=== PATIENT | female | born 1930 | race Two or more races ===

== ENCOUNTER 2016-05-29 17:09 | Emergency (ER) | payer MEDICARE ==
[~2016-05-29] VITALS: Ht 160 cm; Wt 59.0 kg
[2016-05-29] MEDS ORDERED: TYLENOL EXTRA500 MG ORAL (18:15)
[2016-05-29 18:43] VITALS: BP 132/62
--- NOTE | 2016-05-29 22:13 | Emergency Room Report ---
History of Present Illness General Chief Complaint: Lower Extremity Injury Source: Patient (ABI BABCOCK) Present Illness HPI The patient is an 85-year-old female brought in by properties supervisor for pain to the right hand and right knee. The patient tripped, and was guided down by the properties supervisor. The patient states that she fell onto the right hand first and then the right knee. Pain is described as a 6/10 dull ache to both areas and does not radiate. Pain worse with touch and movement. She denies prior injury to these areas. The patient denies any numbness or tingling. He properties supervisor and patient deny loss of consciousness for the patient or head injury. Pt denies N, V, F, chills, neck pain/stiffness, dizziness, CP, SOB (ABI BABCOCK) Allergies: Coded Allergies: No Known Allergies (Unverified , 05/29/16) Patient History Past Medical History: see triage record Pertinent Family History: none Reviewed Nursing Documentation: PMH: Agreed, PSxH: Agreed (ABI BABCOCK) Nursing Documentation-PMH Hx Cardiac Problems: No Hx Hypertension: Yes Hx Pacemaker: No Hx Asthma: No Hx COPD: No Hx Diabetes: No Hx Cancer: No Hx Gastrointestinal Problems: No Hx Dialysis: No History Of Psychiatric Problem: No Hx Neurological Problems: No Hx Cerebrovascular Accident: No Hx Seizures: No (ABI BABCOCK) Review of Systems All Other Systems: negative except mentioned in HPI (ABI BABCOCK) Physical Exam Vital Signs Date Time Temp Pulse Resp B/P Pulse Ox O2 Delivery O2 Flow Rate FiO2 05/29/16 17:02 98.1 66 16 133/70 98 Room Air Sp02 EP Interpretation: reviewed, normal General Appearance: no apparent distress, alert, GCS 15, non-toxic Head: normocephalic, atraumatic Musculoskeletal: gait/station normal, normal range of motion, tender - R hand across MCP joints Neurologic: alert, oriented x3, responsive, motor strength/tone normal, sensory intact, speech normal Psychiatric: judgement/insight normal, memory normal, mood/affect normal, no suicidal/homicidal ideation Skin: normal color, no rash, warm/dry, well hydrated, abrasions - R hand dorsal aspect Lymphatic: no adenopathy (ABI BABCOCK) Procedures Splinting Splinting : Consent: Verbal Location: R hand middle finger Pre-Made Type: metal Pre-Proc Neuro Vasc Exam: normal Post-Proc Neuro Vasc Exam: normal Patient Tolerated: Well Complications: None (ABI BABCOCK) Medical Decision Making PA Attestation Dr. Oglesby is my supervising physician. Patient management was discussed with my supervising physician (ABI BABCOCK) Medicare Attestation The history of Chrissy Lara has been reviewed and management options for her have been examined and discussed by Dane Oglesby. I have personally examined and interviewed the patient. (DANE OGLESBY M.D.) Diagnostic Impression: Primary Impression: Sprain of finger of right hand Qualified Codes: S63.619A - Unspecified sprain of unspecified finger, initial encounter Additional Impression: Hand contusion Qualified Codes: S60.221A - Contusion of right hand, initial encounter ER Course The patient is an 85-year-old female brought in by properties supervisor for pain to the right hand and right knee Ddx considered include but not limited to sprain/strain, fracture, contusion Physical exam: Vitals are within normal limits. No apparent distress. Head NC/AT Right hand: multiple abrasions to the dorsal aspect. Tetanus palpation across the MCP joints. Full active range of motion. Right knee: No ecchymosis. No abrasions. Full active range of motion. No edema. Normal gait. Tenderness to palpation over joint line. X-ray of the right hand is unremarkable. The patient is given Tylenol for pain and a finger splint is placed on the right middle digit. The patient will be discharged home with a prescription for Tylenol and needs to followup with PMD. ER precautions are given (ABI BABCOCK) Other X-Ray Diagnostic Results Other X-Ray Diagnostic Results : X-Ray Ordered: R hand Date: May 29, 2016 EP Interpretation: Yes Findings: no fractures, no dislocation, no soft tissue swelling Number of Views: 3 PA Scribe Text I am acting as scribe for my supervising physician. My supervising physician's interpretation of the R hand xrays are there are no fractures, dislocations or soft tissue swelling. (ABI BABCOCK) Last Vital Signs Date Time Temp Pulse Resp B/P Pulse Ox O2 Delivery O2 Flow Rate FiO2 05/29/16 18:43 60 18 132/62 100 Room Air 05/29/16 17:02 98.1 Status: improved (ABI BABCOCK) Disposition: HOME, SELF-CARE Condition: Improved Scripts Acetaminophen* (TYLENOL EXTRA STRENGTH*) 500 Mg Tablet 500 MG ORAL Q8H Y for Prn Headache/Temp > 101, #30 TAB 0 Refills Prov: ABI BABCOCK 05/29/16 Referrals: NOT CHOSEN [facility]/,REFERRING (PCP) Patient Instructions: Finger Sprain Additional Instructions: I discussed my findings with the patient. All questions and concerns have been answered. Treatment and medication compliance have been addressed. I advised the patient that they need to follow up with PMD in 3-5 days. Return to ED if pain remains or worsens, numbness or tingling occurs, new rash is noticed, fever is noticed, or if needed for any reason. Patient verbalized understanding of discharge instructions. ABI BABCOCK May 29, 2016 22:12 DANE OGLESBY M.D. Jun 03, 2016 14:03
--- NOTE | 2016-05-30 11:03 | Diagnostic Imaging Report ---
Indication: PAIN Technique: 3 views right hand Comparison: none Findings: The bones are osteoporotic. 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 No acute fractures. No dislocations. Joint spaces are preserved. Impression: Findings as noted, including osteoporotic change. No acute bony trauma
== END 2016-05-29 18:46 | disposition home or self-care (01) ==
LOC: EDBD 17:09 → EMR 18:18
DX: S60.221A Contusion of right hand, initial encounter (principal); S63.612A Unspecified sprain of right middle finger, initial encounter; I10 Essential (primary) hypertension; W01.0XXA Fall on same level from slipping, tripping and stumbling without subsequent striking against object, initial encounter; Y92.9 Unspecified place or not applicable; Y99.8 Other external cause status
CPT/HCPCS: 29280; 99284